=== PATIENT | male | born 1975 | race Two or more races ===

== ENCOUNTER 2023-03-17 01:11 | Emergency (ER) | payer SELFPAY ==
[~2023-03-17] VITALS: Ht 182.9 cm; Wt 95.0 kg
[2023-03-17] MEDS ORDERED: IBUPROFEN 600MG TABLET PO NR (01:47)
[2023-03-17 01:58] VITALS: BP 126/76
[2023-03-17] MEDS ORDERED: NAPR-681 PO (03:08)
[2023-03-17] MEDS ORDERED: CYCL5TAB PO (03:08)
== END 2023-03-17 03:20 | disposition home or self-care (01) ==
LOC: ER 01:22
DX: S16.1XXA Strain of muscle, fascia and tendon at neck level, initial encounter (principal); M25.512 Pain in left shoulder; V49.49XA Driver injured in collision with other motor vehicles in traffic accident, initial encounter; Y93.89 Activity, other specified; Y92.89 Other specified places as the place of occurrence of the external cause; Y99.8 Other external cause status
CPT/HCPCS: 73030; 99283; Z7610